=== PATIENT | female | born 1950 | race Caucasian/White ===

== ENCOUNTER 2023-10-20 14:03 | Day surgery (SDC) | payer MEDICARE, SELFPAY ==
[2023-10-20 14:28] VITALS: BP 149/75; PULSE 95; RESP 16; TEMP 36.4; O2SAT 98
[2023-10-20] MEDS: LACTATED RINGERS 1,000 ML 42 ML IV (14:39)
--- NOTE | 2023-10-20 15:14 | P.HP_ITS ---
History of Present Illness History of Present Illness Date Patient Seen: 10/20/23 Time Patient Seen: 15:14 Chief complaint: [facility] [place]: 72-year-old female here for colon cancer screening. Asymptomatic. She indicates her index colonoscopy was done at age 52 and was unremarkable at that time. [facility] Social History Smoking Status: Never smoker alcohol intake: current Meds Home Medications and Allergies Home Medications Medication Instructions Recorded Confirmed Type metformin 500 mg tablet 500 mg PO DAILY 10/20/23 10/20/23 History paroxetine HCl 20 mg tablet 20 mg PO DAILY 10/20/23 10/20/23 History rosuvastatin 5 mg tablet 5 mg PO DAILY 10/20/23 10/20/23 History Allergies Allergy/AdvReac Type Severity Reaction Status Date / Time No Known Drug Allergies Allergy Verified 10/20/23 14:24 Review of Systems Review of Systems ROS: Yes All systems reviewed with the patient and are negative except as otherwise documented Exam Vital Signs (past 8 hours): - 10/20/23 14:28 Temperature 97.5 F L Pulse Rate 95 H Respiratory Rate 16 Blood Pressure 149/75 H Pulse Oximetry 98 Oxygen Delivery Method Room Air Oxygen Delivery Method Room Air Const General: cooperative HENMT Head: normal to inspection Eyes General: appearance normal, both eyes and all related structures Neck Neck: normal visual inspection Chest Chest: normal inspection of the chest Resp Effort & Inspection: normal respiratory effort Cardio Rate: regular rate GI Inspection: normal to inspection Skin General: no rashes or lesions noted Neuro General: patient alert and patient awake Extrem General: normal to inspection and no pedal edema Psych Appearance: grossly normal Assessment & Plan Assessment & Plan narrative: 72-year-old female indicated for colon cancer screening. Colonoscopy is pursued today.
--- NOTE | 2023-10-20 16:02 | PM.PREOP ---
Pre-operative Note Interval Note History & Physical reviewed/Exam performed by Physician: Yes Changes to H&P: No ASA Class (for procedural sedation): II
[2023-10-20 16:47] VITALS: BP 82/49; PULSE 76; RESP 22; TEMP 36.1; O2SAT 96
--- NOTE | 2023-10-20 16:48 | PM.OP.COLON ---
Operative Date/Time/Diagnoses Date of procedure: 10/20/23 Time of procedure: 16:48 Pre-op diagnosis: Colon cancer screening Post-op diagnosis: same Procedure & Clinicians Study performed: Colonoscopy Same procedure as scheduled: Yes Indications: Colon cancer screening Surgeon: aDrren Galeana Procedure Notes SCOAP/Timeout: Done Procedure in detail: After the risks and benefits were explained, written and verbal informed consent was obtained. The patient was brought into the procedure room and placed into the left lateral decubitus position. Please see anesthesia notes for sedation details. Digital rectal examination was accomplished. The scope was introduced into the patient and advanced under direct visualization to the cecum as identified by the appendiceal orifice and ileocecal valve. The scope was slowly withdrawn to carefully examine the mucosa for any defects or lesions. Comprehensive imaging was accomplished throughout the rectum including the dentate line. The colon was decompressed, the scope was then removed from the patient who tolerated the procedure well. Pediatric colonoscope Bowel prep adequate Scope withdrawal time: 8 minutes Sedation minutes: 23 Specimen(s): none sent Complications: none Impression: The patient had an extremely tortuous colon. Navigation to cecum was quite challenging. Ultimately this was achieved by way of the stiffening danni and supine patient positioning. I did not appreciate any significant mucosal pathology throughout. Endoscopic diagnosis 1. Tortuous colon 2. Otherwise visually normal exam Post-procedure Plan for aftercare: 1. Follow-up in primary care as before. 2. Consider noninvasive colon cancer screening in 10 years' time. Disposition: PACU
[2023-10-20 16:53] VITALS: BP 84/51; PULSE 80; RESP 20; O2SAT 97
[2023-10-20 16:59] VITALS: BP 102/66; PULSE 78; RESP 11; TEMP 36.2; O2SAT 98
[2023-10-20 17:01] VITALS: BP 102/66; PULSE 78; RESP 12; O2SAT 98
== END 2023-10-20 17:15 | disposition home or self-care (01) ==
PROVIDERS: PCP Physician Assistant; Referring Provider Internal Medicine Gastroenterology; Visit Provider Internal Medicine Gastroenterology
PROC: 0DJD8ZZ Inspection of Lower Intestinal Tract, Via Natural or Artificial Opening Endoscopic (ICD-10-PCS; CPT 45378; principal; 2023-10-20 15:00)
DX: Z12.11 Encounter for screening for malignant neoplasm of colon (principal)
CPT/HCPCS: G0121; J2704